=== PATIENT | female | born 1985 | race Caucasian/White ===

== ENCOUNTER 2017-08-29 11:10 | Emergency (ER) | payer OTHER ==
[2017-08-29] MEDS: NORCO, ANEXSIA 5/325MG TABLET (HYDROcodone/ACETAMINOPHEN) PO (12:04)
[2017-08-29] MEDS: AMOXICILLIN 500 MG CAP PO (12:05)
== END 2017-08-29 12:17 | disposition home or self-care (01) ==
LOC: M ED 11:10
DX: K04.7 Periapical abscess without sinus (principal); K02.9 Dental caries, unspecified; F17.210 Nicotine dependence, cigarettes, uncomplicated
CPT/HCPCS: 99283

== ENCOUNTER → 2018-10-26 | Outpatient (REF) | payer OTHER ==
[~2018-10-26] MED LIST: AMOX500C PO; IBUP-1022 PO; IBUP600T26 PO; VICODIN 5/325 PO
[2018-10-29 15:52] LABS: HPV HYBRID CAPTURE II Negative (Negative)
== END ==
LOC: M LAB REF 10:04
PROVIDERS: ATTEND Advanced Practice Midwife
DX: Z12.4 Encounter for screening for malignant neoplasm of cervix (principal)

== ENCOUNTER → 2018-10-28 | Outpatient (CLI) | payer OTHER | LOC: M LAB 12:19 | PROVIDERS: ATTEND Advanced Practice Midwife | DX: Z13.79 Encounter for other screening for genetic and chromosomal anomalies (principal) ==

== ENCOUNTER → 2019-02-08 | Outpatient (CLI) | payer OTHER ==
[2019-02-08 10:32] LABS: HCG, SERUM QUALITATIVE NEGATIVE (NEGATIVE)
[2019-02-08 10:36] LABS: FREE T4 1.16 NG/DL (0.76-1.46)
--- NOTE | 2019-02-08 13:29 | REP ---
Clinical: Lower abdominal/pelvic pain . Technique: Transabdominal pelvic ultrasound followed by transvaginal examination for better evaluation of the endometrium and adnexa with color Doppler evaluation of the ovaries. Findings: Bladder is collapsed. Heterogeneous anteverted uterus measures at 8.1 x 4.5 x 4.4 cm and demonstrates parenchymal calcifications and changes related to prior section. The endometrial complex measures 8.2 mm thickness. Multiple Nabothian cysts are identified measuring up to 14 x 8 x 10 mm. Right ovary is normal in appearance without torsion and measures 2.2 x 1.4 x 1.8 cm. Left ovary not visualized likely due to position and surrounding bowel gas. No pelvic free fluid or obvious adnexal mass lesion. Impression: 1. Heterogeneous anteverted uterus with multiple Nabothian cysts measuring up to 14 mm and evidence for prior section. 2. Normal right ovary without torsion. Left ovary not visualized. Electronically Signed by Ilan Bingham MD 02/08/2019 01:19 P
== END ==
LOC: M RAD 09:30
PROVIDERS: ATTEND Advanced Practice Midwife
DX: N88.8 Other specified noninflammatory disorders of cervix uteri (principal); Z86.32 Personal history of gestational diabetes

== ENCOUNTER → 2019-05-14 | Outpatient (REF) | payer OTHER | LOC: M SFHCPLAZ 15:08 | DX: Z13.1 Encounter for screening for diabetes mellitus (principal); Z13.220 Encounter for screening for lipoid disorders; Z11.59 Encounter for screening for other viral diseases; F17.200 Nicotine dependence, unspecified, uncomplicated; Z53.9 Procedure and treatment not carried out, unspecified reason ==

== ENCOUNTER 2020-05-01 17:16 | Emergency (ER) | payer OTHER ==
[~2020-05-01] VITALS: Ht 165.1 cm; Wt 103.0 kg
[2020-05-01] MEDS ORDERED: ONDANSETRON 4MG/2ML VIAL IV ONE (17:30)
[2020-05-01] MEDS ORDERED: NS 1,000 ML IV ONE (17:30)
[2020-05-01 18:10] LABS: BASO # 0.1 10^3/uL (0.0-0.2); BASO % 0.3 % (0.0-1.0); EOS % 0.2 % (0.0-3.0); HEMATOCRIT 42.6 % (36.0-47.0); HEMOGLOBIN 14.1 g/dl (12.0-15.5); LYMPH # 1.8 10^3/uL (1.5-5.0); LYMPH % 9.9 % (24.0-44.0); MEAN CORPUSCULAR HEMOGLOBIN 29.1 pg (27.0-33.0); MEAN CORPUSCULAR HGB CONC 33.1 g/dl (32.0-36.5); MEAN CORPUSCULAR VOLUME 87.8 fl (80.0-96.0); MONO % 5.4 % (0.0-5.0); NEUTROPHILS % 83.6 % (36.0-66.0); PLATELET COUNT, AUTOMATED 261 10^3/uL (150-450); RED BLOOD COUNT 4.85 10^6/uL (4.00-5.40); WHITE BLOOD COUNT 17.9 10^3/uL (4.0-10.0)
[2020-05-01 18:45] LABS: ACETAMINOPHEN LEVEL < 2.0 UG/ML (10.0-30.0); ALT/SGPT 44 U/L (12-78); BILIRUBIN,DIRECT 0.1 MG/DL (0.0-0.2); BILIRUBIN,TOTAL 0.3 MG/DL (0.2-1.0); BLOOD UREA NITROGEN 10 MG/DL (7-18); CALCIUM LEVEL 9.4 MG/DL (8.5-10.1); CARBON DIOXIDE LEVEL 30 MEQ/L (21-32); CHLORIDE LEVEL 104 MEQ/L (98-107); CPK CREATINE PHOSPHOKINASE 87 U/L (26-192); CREATININE FOR GFR 0.73 MG/DL (0.55-1.30); ETHYL ALCOHOL (ETHANOL) < 0.003 % (0.000-0.010); GLOMERULAR FILTRATION RATE > 60.0 (>60); GLUCOSE, FASTING 110 MG/DL (70-100); POTASSIUM SERUM 3.7 MEQ/L (3.5-5.1); SALICYLATE LEVEL 2.9 MG/DL (5.0-30.0); SODIUM LEVEL 140 MEQ/L (136-145); TOTAL PROTEIN 7.5 GM/DL (6.4-8.2)
[2020-05-01 20:30] VITALS: BP 157/83
== END 2020-05-01 20:53 | disposition home or self-care (01) ==
LOC: M ED 17:16 → EDBD 17:16 → M ED 20:53
DX: F11.129 Opioid abuse with intoxication, unspecified (principal); Y92.89 Other specified places as the place of occurrence of the external cause; F32.9 Major depressive disorder, single episode, unspecified; F41.9 Anxiety disorder, unspecified; F17.200 Nicotine dependence, unspecified, uncomplicated
CPT/HCPCS: 36415; 80048; 80076; 82550; 84443; 85025; 96361; 96374; 99284; G0480; J2405

== ENCOUNTER 2020-10-09 12:58 | Emergency (ER) | payer OTHER ==
[~2020-10-09] VITALS: Ht 170.2 cm; Wt 86.4 kg
--- OUTSIDE RECORDS SUMMARY | 2020-10-09 13:16 | CCD ---
Author Author [facility] Organization [facility] Address Unknown Phone Unavailable Care Team Providers Care Lapel Padder Blindstitch Name Role Phone PETROFF, LARRY PA Unavailable Unavailable PETROFF, LARRY PA Unavailable Unavailable PETROFF, LARRY PA Unavailable Unavailable PETROFF, LARRY PA Unavailable Unavailable PETROFF, LARRY PA Unavailable Unavailable PETROFF, LARRY PA Unavailable Unavailable PETROFF, LARRY PA Unavailable Unavailable PETROFF, LARRY PA Unavailable Unavailable SYMENOW, G CHRISTOPHER PA Unavailable Unavailable SYMENOW, G CHRISTOPHER PA Unavailable Unavailable SYMENOW, G CHRISTOPHER PA Unavailable Unavailable SYMENOW, G CHRISTOPHER PA Unavailable Unavailable SYMENOW, G CHRISTOPHER PA Unavailable Unavailable SYMENOW, G CHRISTOPHER PA Unavailable Unavailable SYMENOW, G CHRISTOPHER PA Unavailable Unavailable SYMENOW, G CHRISTOPHER PA Unavailable Unavailable SYMENOW, G CHRISTOPHER PA Unavailable Unavailable SYMENOW, G CHRISTOPHER PA Unavailable Unavailable SYMENOW, G CHRISTOPHER PA Unavailable Unavailable SYMENOW, G CHRISTOPHER PA Unavailable Unavailable SYMENOW, G CHRISTOPHER PA Unavailable Unavailable SYMENOW, G CHRISTOPHER PA Unavailable Unavailable SYMENOW, G CHRISTOPHER PA Unavailable Unavailable SYMENOW, G CHRISTOPHER PA Unavailable Unavailable SYMENOW, G CHRISTOPHER PA Unavailable Unavailable PONCHO, L AYLEEN PA Unavailable Unavailable PONCHO, L AYLEEN PA Unavailable Unavailable PONCHO, L AYLEEN PA Unavailable Unavailable PONCHO, L AYLEEN PA Unavailable Unavailable PONCHO, L AYLEEN PA Unavailable Unavailable PONCHO, L AYLEEN PA Unavailable Unavailable PONCHO, L AYLEEN PA Unavailable Unavailable PONCHO, L AYLEEN PA Unavailable Unavailable PONCHO, L AYLEEN PA Unavailable Unavailable PONCHO, L AYLEEN PA Unavailable Unavailable PONCHO, L AYLEEN PA Unavailable Unavailable PONCHO, L AYLEEN PA Unavailable Unavailable PONCHO, L AYLEEN PA Unavailable Unavailable PONCHO, L AYLEEN PA Unavailable Unavailable PONCHO, L AYLEEN PA Unavailable Unavailable PONCHO, L AYLEEN PA Unavailable Unavailable PONCHO, L AYLEEN PA Unavailable Unavailable PONCHO, L AYLEEN PA Unavailable Unavailable PONCHO, L AYLEEN PA Unavailable Unavailable Morris, W Tessa RPA-C Unavailable Unavailable Morris, W Tessa RPA-C Unavailable Unavailable Morris, W Tessa RPA-C Unavailable Unavailable Morris, W Tessa RPA-C Unavailable Unavailable Morris, W Tessa RPA-C Unavailable Unavailable Morris, W Tessa RPA-C Unavailable Unavailable Morris, W Tessa RPA-C Unavailable Unavailable Morris, W Tessa RPA-C Unavailable Unavailable Morris, W Tessa RPA-C Unavailable Unavailable Morris, W Tessa RPA-C Unavailable Unavailable Morris, W Tessa RPA-C Unavailable Unavailable Morris, W Tessa RPA-C Unavailable Unavailable Morris, W Tessa RPA-C Unavailable Unavailable Morris, W Tessa RPA-C Unavailable Unavailable Morris, W Tessa RPA-C Unavailable Unavailable Morris, W Tessa RPA-C Unavailable Unavailable Herb GEORGE MD Unavailable Unavailable Herb GEORGE MD Unavailable Unavailable Herb GEORGE MD Unavailable Unavailable Herb GEORGE MD Unavailable Unavailable Herb GEORGE MD Unavailable Unavailable Herb GEORGE MD Unavailable Unavailable Herb GEORGE MD Unavailable Unavailable Herb GEORGE MD Unavailable Unavailable Herb GEORGE MD Unavailable Unavailable Herb GEORGE MD Unavailable Unavailable Herb GEORGE MD Unavailable Unavailable DORISHerb Rudolph MD Unavailable Unavailable DORIS, F DORA MD Unavailable Unavailable DORIS, F DORA MD Unavailable Unavailable DORIS, F DORA MD Unavailable Unavailable DORIS, F DORA MD Unavailable Unavailable DORIS, F DORA MD Unavailable Unavailable DORIS, F DORA MD Unavailable Unavailable DORIS, F DORA MD Unavailable Unavailable DORIS, F DORA MD Unavailable Unavailable DORIS, F DORA MD Unavailable Unavailable DORIS, F DORA MD Unavailable Unavailable DORIS, F DORA MD Unavailable Unavailable DORIS, F DORA MD Unavailable Unavailable DORIS, F DORA MD Unavailable Unavailable DORIS, F DORA MD Unavailable Unavailable DORIS, F DORA MD Unavailable Unavailable DORIS, F DORA MD Unavailable Unavailable LO, MELLISA NASREEN RPA-C Unavailable Unavailable LO, MELLISA NASREEN RPA-C Unavailable Unavailable LO, MELLISA NASREEN RPA-C Unavailable Unavailable LO, MELLISA NASREEN RPA-C Unavailable Unavailable LO, MELLISA NASREEN RPA-C Unavailable Unavailable LO, MELLISA NASREEN RPA-C Unavailable Unavailable LO, MELLISA NASREEN RPA-C Unavailable Unavailable LO, MELLISA NASREEN RPA-C Unavailable Unavailable LO, MELLISA NASREEN RPA-C Unavailable Unavailable LO, MELLISA NASREEN RPA-C Unavailable Unavailable LO, MELLISA NASREEN RPA-C Unavailable Unavailable LO, MELLISA NASREEN RPA-C Unavailable Unavailable LO, MELLISA NASREEN RPA-C Unavailable Unavailable LO, MELLISA NASREEN RPA-C Unavailable Unavailable LO, MELLISA NASREEN RPA-C Unavailable Unavailable LO, MELLISA NASREEN RPA-C Unavailable Unavailable LO, MELLISA NASREEN RPA-C Unavailable Unavailable LO, MELLISA NASREEN RPA-C Unavailable Unavailable LO, MELLISA NASREEN RPA-C Unavailable Unavailable LO, MELLISA NASREEN RPA-C Unavailable Unavailable LO, MELLISA NASREEN RPA-C Unavailable Unavailable LO, MELLISA NASREEN RPA-C Unavailable Unavailable LO, MELLISA NASREEN RPA-C Unavailable Unavailable LO, MELLISA NASREEN RPA-C Unavailable Unavailable LO, MELLISA NASREEN RPA-C Unavailable Unavailable LO, MELLISA NASREEN RPA-C Unavailable Unavailable LO, MELLISA NASREEN RPA-C Unavailable Unavailable LO, MELLISA NASREEN RPA-C Unavailable Unavailable LO, MELLISA NASREEN RPA-C Unavailable Unavailable LO, MELLISA NASREEN RPA-C Unavailable Unavailable LO, MELLISA NASREEN RPA-C Unavailable Unavailable LO, MELLISA NASREEN RPA-C Unavailable Unavailable LO, MELLISA NASREEN RPA-C Unavailable Unavailable LO, MELLISA NASREEN RPA-C Unavailable Unavailable LO, MELLISA NASREEN RPA-C Unavailable Unavailable LO, MELLISA NASREEN RPA-C Unavailable Unavailable LO, MELLISA NASREEN RPA-C Unavailable Unavailable LO, MELLISA NASREEN RPA-C Unavailable Unavailable LO, MELLISA NASREEN RPA-C Unavailable Unavailable Dille, E Jessica DDS Unavailable Unavailable Dille, E Jessica DDS Unavailable Unavailable Dille, E Jessica DDS Unavailable Unavailable Dille, E Jessica DDS Unavailable Unavailable WERBLIN, Landon ZARATE Unavailable [phone] WERBLIN, Landon ZARATE Unavailable [phone] WERALLISONINLandon Unavailable [phone] WERBLIN, Landon ZARATE Unavailable [phone] WERBLIN, Landon ZARATE Unavailable [phone] Kunnumpurath, F Monik MD Unavailable Unavailable Kunnumpurath, F Monik MD Unavailable Unavailable Kunnumpurath, F Monik MD Unavailable Unavailable Kunnumpurath, F Monik MD Unavailable Unavailable Kunnumpurath, F Monik MD Unavailable Unavailable Kunnumpurath, F Monik MD Unavailable Unavailable Kunnumpurath, F Monik MD Unavailable Unavailable Kunnumpurath, F Monik MD Unavailable Unavailable Kunnumpurath, F Monik MD Unavailable Unavailable Kunnumpurath, F Monik MD Unavailable Unavailable Kunnumpurath, F Monik MD Unavailable Unavailable Kunnumpurath, F Monik MD Unavailable Unavailable Kunnumpurath, F Monik MD Unavailable Unavailable Kunnumpurath, F Monik MD Unavailable Unavailable Kunnumpurath, F Monik MD Unavailable Unavailable Kunnumpurath, F Monik MD Unavailable Unavailable Kunnumpurath, F Monik MD Unavailable Unavailable Kunnumpurath, F Monik MD Unavailable Unavailable Kunnumpurath, F Monik MD Unavailable Unavailable Kunnumpurath, F Monik MD Unavailable Unavailable Kunnumpurath, F Monik MD Unavailable Unavailable Kunnumpurath, F Monik MD Unavailable Unavailable Kunnumpurath, F Monik MD Unavailable Unavailable Kunnumpurath, F Monik MD Unavailable Unavailable Kunnumpurath, F Monik MD Unavailable Unavailable Kunnumpurath, F Monik MD Unavailable Unavailable Kunnumpurath, F Monik MD Unavailable Unavailable Kunnumpurath, F Monik MD Unavailable Unavailable Kunnumpurath, F Monik MD Unavailable Unavailable Kunnumpurath, F Monik MD Unavailable Unavailable Kunnumpurath, F Monik MD Unavailable Unavailable Kunnumpurath, F Monik MD Unavailable Unavailable Kunnumpurath, F Monik MD Unavailable Unavailable Kunnumpurath, F Monik MD Unavailable Unavailable Kunnumpurath, F Monik MD Unavailable Unavailable Kunnumpurath, F Monik MD Unavailable Unavailable Kunnumpurath, F Monik MD Unavailable Unavailable Kunnumpurath, F Monik MD Unavailable Unavailable ROZINA, MATTHEW USMAN PA Unavailable Unavailable ROZINA, MATTHEW USMAN PA Unavailable Unavailable ROZINA, MATTHEW USMAN PA Unavailable Unavailable ROZINA, MATTHEW USMAN PA Unavailable Unavailable ROZINA, MATTHEW USMAN PA Unavailable Unavailable ROZINA, MATTHEW USMAN PA Unavailable Unavailable ROZINA, MATTHEW USMAN PA Unavailable Unavailable ROZINA, MATTHEW USMAN PA Unavailable Unavailable ROZINA, MATTHEW USMAN PA Unavailable Unavailable ROZINA, MATTHEW USMAN PA Unavailable Unavailable ROZINA, MATTHEW USMAN PA Unavailable Unavailable ROZINA, MATTHEW USMAN PA Unavailable Unavailable ROZINA, MATTHEW USMAN PA Unavailable Unavailable ROZINA, MATTHEW USMAN PA Unavailable Unavailable ROZINA, MATTHEW USMAN PA Unavailable Unavailable ROZINA, MATTHEW USMAN PA Unavailable Unavailable ROZINA, MATTHEW USMAN PA Unavailable Unavailable ROZINA, MATTHEW USMAN PA Unavailable Unavailable ROZINA, MATTHEW USMAN PA Unavailable Unavailable ROZINA, MATTHEW USMAN PA Unavailable Unavailable ROZINA, MATTHEW USMAN PA Unavailable Unavailable Kunnumpurath, F Monik MD Unavailable Unavailable Kunnumpurath, F Monik MD Unavailable Unavailable Kunnumpurath, F Monik MD Unavailable Unavailable Kunnumpurath, F Monik MD Unavailable Unavailable Kunnumpurath, F Monik MD Unavailable Unavailable Kunnumpurath, F Monik MD Unavailable Unavailable Kunnumpurath, F Monik MD Unavailable Unavailable Kunnumpurath, F Monik MD Unavailable Unavailable Kunnumpurath, F Monik MD Unavailable Unavailable Kunn[place]urath, F Monik MD Unavailable Unavailable Kunn[place]urath, F Monik MD Unavailable Unavailable Kunnumpurath, F Omnik MD Unavailable Unavailable Kunnumpurath, F Monik MD Unavailable Unavailable Kunnumpurath, F Monik MD Unavailable Unavailable Kunnumpurath, F Monik MD Unavailable Unavailable Kunnumpurath, F Monik MD Unavailable Unavailable Kunnumpurath, F Monik MD Unavailable Unavailable Kunnumpurath, F Monik MD Unavailable Unavailable Kunnumpurath, F Monik MD Unavailable Unavailable Kunn[place]urath, F Monik MD Unavailable Unavailable Kunnumpurath, F Monik MD Unavailable Unavailable Kunnumpurath, F Monik MD Unavailable Unavailable Kunnumpurath, F Monik MD Unavailable Unavailable Kunn[place]urath, F Monik MD Unavailable Unavailable Kunnumpurath, F Monik MD Unavailable Unavailable Kunn[place]urath, F Monik MD Unavailable Unavailable Kunnumpurath, F Monik MD Unavailable Unavailable Kunnumpurath, F Monik MD Unavailable Unavailable Kunnumpurath, F Monik MD Unavailable Unavailable Kunnumpurath, F Monik MD Unavailable Unavailable Kunnumpurath, F Monik MD Unavailable Unavailable Kunn[place]urath, F Monik MD Unavailable Unavailable Kunn[place]urath, F Monik MD Unavailable Unavailable Kunnumpurath, F Monik MD Unavailable Unavailable Kunnumpurath, F Monik MD Unavailable Unavailable Kunnumpurath, F Monik MD Unavailable Unavailable Kunnumpurath, F Monik MD Unavailable Unavailable Kunnumpurath, F Monik MD Unavailable Unavailable NO, PCP Unavailable Unavailable Re-disclosure Warning The records that you are about to access may contain information from federally-assisted alcohol or drug abuse programs. If such information is present, then the following federally mandated warning applies: This information has been disclosed to you from records protected by federal confidentiality rules (42 CFR part 2). The federal rules prohibit you from making any further disclosure of this information unless further disclosure is expressly permitted by the written consent of the person to whom it pertains or as otherwise permitted by 42 CFR part 2. A general authorization for the release of medical or other information is NOT sufficient for this purpose. The Federal rules restrict any use of the information to criminally investigate or prosecute any alcohol or drug abuse patient.The records that you are about to access may contain highly sensitive health information, the redisclosure of which is protected by Article 27-F of the [facility] Public Health law. If you continue you may have access to information: Regarding HIV / AIDS; Provided by facilities licensed or operated by the [facility] Office of Mental Health; or Provided by the [facility] Office for People With Developmental Disabilities. If such information is present, then the following [facility] mandated warning applies: This information has been disclosed to you from confidential records which are protected by state law. State law prohibits you from making any further disclosure of this information without the specific written consent of the person to whom it pertains, or as otherwise permitted by law. Any unauthorized further disclosure in violation of state law may result in a fine or intermediate sentence or both. A general authorization for the release of medical or other information is NOT sufficient authorization for further disc losure. Allergies and Adverse Reactions Type Description Substance Reaction Status Data Source(s ) No Known Drug Allergies No Known Drug Allergies [facility] No Known Environmental Allergies No Known Environmental Al lergies [facility] No Known Food Allergies No Known Food Allergies [facility] Family History Family Member Name Family Member Gender Family Member Status Date o f Status Description Data Source(s) Unknown Unknown Problem [facility] ([facility], ) Unknown Male Problem MED[facility] ([facility]) Encounters Encounter Providers Location Date Indications Data Source(s ) Unknown [id number] [facility] [place] [address] 05/25/2020 12:00:00 AM EDT eCW1 ([facility]) Emergency Attender: Tessa Morris RPA-C 08:44:00 AM EDT - 01/01/2020 08:58:00 AM EDT [facility] Patient discharged. Outpatient Attender: Monik King MDConsultant: PCP NO 10/28/2019 10:03:00 AM EDT - 10/28/2019 10:03:00 AM EDT [facility] Outpatient Attender: Monik King MD Family Practice 0 10/28/2019 10:00:00 AM EDT [facility] ([facility]) Outpatient Attender: DORA GEORGE MDConsultant: PCP NO 10/28/2019 08:35:00 AM EDT - 10/28/2019 09:35:00 AM EDT [facility] ital [address] [address] 09/15/2019 12:00:00 AM EST eCW1 ([facility]) Emergency Attender: USMAN HAYSeferrer: NASREEN WHALEN RPA-C 09/13/2019 02:41:00 PM EST - 09/13/2019 02:56:00 PM EST [facility] Patient discharged. Outpatient Attender: DORA GEORGE MD 08/19 09:46:00 AM EST - 09/08/2019 09:46:00 AM [facility] Outpatient Attender: DORA GEORGE MD Family Practice 08/19 08:45:00 AM EST [facility] ([facility]) Outpatient Attender: Jessica Yu DDS [facility] 09/03/2019 10:24:01 A M [facility] Outpatient Attender: [facility] 09/03/2019 10:23:00 A M [facility] Emergency Attender: AYLEEN GOODWIN 08/2018 10:53:00 AM EDT - 03/18/2019 10:54:00 AM [facility] Patient discharged. Emergency Attender: TESSA WILKINS 017 10:13:00 AM EDT - 06/08/2017 06:20:00 PM [facility] Emergency Attender: SUNDAR GOODWIN 07/09/2016 11:07:00 AM EST - 07/09/2016 12:19:00 PM [facility] Emergency Attender: LARRY GOODWIN EMERGENCY ROOM-ER 04/20 12:57:00 PM EDT - 05/16/2016 04:25:00 PM [facility] Emergency Attender: Tessa Morris RPA-C 02/2015 03:06:00 PM EDT - 05/24/2015 05:15:00 PM EDT [facility] Medications Medication Brand Name Start Date Product Form Dose Route Admi nistrative Instructions Pharmacy Instructions Status Indications Reaction Description Data Source(s) 5-325 mg 01/01/2020 12:00:00 AM EDT tablet 6 TAKE ONE TABLET BY MOUTH THREE TIMES A DAY . MAXIMUM DAILY DOSE = 3 TAKE ONE TABLET BY MOUTH THREE TIMES A D AY . MAXIMUM DAILY DOSE = 3 SOLD: 01/01/2020 [facility] 300 mg 01/01/2020 12:00:00 AM EDT capsule 40 TAKE ONE CAPSULE BY MOUTH FOUR TIMES A DAY TAKE ONE CAPSULE BY MOUTH FOUR TIMES A DAY SOLD: 01/01/2020 [facility] 24 HR metoprolol succinate 25 MG Extended Release Oral Tablet Metoprolol Succinate ER 10/28/2019 12:00:00 AM EDT ORAL active MEDENT ([facility]) 5-325 mg 09/13/2019 12:00:00 AM EST tablet 24 TAKE ONE TABLET BY MOUTH EVERY 4-6 HOURS NEEDED FOR PAIN MAXIMUM DAILY DOSE = 6 TAKE ONE TABLET BY MOUTH EVERY 4-6 HOURS NEEDED FOR PAIN MAXIMUM DAILY DOSE = 6 SOLD: 09/13/2019 [facility] 300 mg 09/13/2019 12:00:00 AM EST capsule 40 TAKE ONE CAPSULE BY MOUTH EVERY 6 HOURS DIRECTED FOR 10 DAYS TAKE ONE CAPSULE BY MOUTH EVERY 6 HOURS DIRECTED FOR 10 DAYS SOLD: 09/13/2019 [facility] 500 mg 09/13/2019 12:00:00 AM EST tablet 20 TAKE ONE TABLET BY MOUTH EVERY 12 HOURS TAKE ONE TABLET BY MOUTH EVERY 12 HOURS SOLD: 09/13/2019 [facility] No Active Medications 07/14/2019 12:00:00 AM EST completed MEDENT ([facility]) Insurance Providers Payer name Policy type / Coverage type Policy ID Covered constitution party ID Covered constitution party's relationship to sampson Policy Sampson Plan Information [employer] MCDO [id number] SP [id number] [employer] MEDICAID [id number] S [id number] [employer] MEDICAID [id number] S [id number] [employer] MEDICAID [id number] S [id number] [employer] MEDICAID [id number] S [id number] [employer] COMMUNITY PLAN XIX [id number] 18 [id number] [facility] COMMUNTY PLAN [id number] 18 [id number] [employer] MEDICAID [id number] S [id number] MEDICAID [facility] [id number] Sliding Fee Scale P UNAVAILABLE S UNAVAILABLE SELF PAY ONLY [id number] SP [id number] [employer] COMMUNITY PLAN [facility] [id number] SP [id number] [facility](MCAID) O [id number] S [id number] [facility] Health Maintenance Organization (HMO) [id number] Self [id number] [employer] COMMUNITY PLAN [facility] [id number] SP [id number] [facility] Health Maintenance Organization (HMO) [id number] Self [id number] [facility] Health Maintenance Organization (HMO) [id number] Self [id number] ANSI-Medicaid [id number] MEDICAID [id number] S [id number] MEDICAID [id number] S [id number] SELF PAY UNAVAILABLE S UNAVAILA BLE [facility] MEDICAID [id number] S [id number] [facility] Communty Plan Medicaid [id number] Self [id number] SELF PAY SP [id number] S [id number] [facility] [id number] S [id number] D Managed Care [facility] P [id number] S [id number] D Managed Care [facility] P UNAVAILABLE S UNAVAILABLE Medicaid Dental P [id number] S [id number] SELF PAY UNAVAILABLE MO2 UNAVAILA BLE [facility](MCAID) P [id number] S [id number] [employer] [id number] SP [id number] UNITED HEALTHCARE [id number] SP [id number] [facility] S 0000 [facility] [id number] S [id number] [employer] [place] PLAN [id number] SP [id number] MEDICAID [id number] SP [id number] Problems, Conditions, and Diagnoses Code Display Name Description Problem Type Effective Dates Data Source(s) 84305329 Heart murmur Heart murmur Problem 10/28/2019 12:00:00 A M EDT MEDBRIANNA ([facility]) [id number] Obesity Obesity Problem 10/28/2019 12:00:00 AM ED T MEDBRIANNA ([facility]) [id number] Family history of malignant neoplasm of ovary Family history of malignant neoplasm of ovary Problem 10/28/2019 12:00:00 AM EDT MEDEN T ([facility]) [id number] Essential hypertension Essential hypertension Problem 10/28/2019 12:00:00 AM EDT MEDENT ([facility]) Z79.899 Other group home (current) drug therapy [facility] (CURRENT) DRUG THERAPY Diagnosis 01/01/2020 08[facility]44[facility] (current) use of non-steroidal anti-inflammatories (NSAID) GARBAGE PICK UP MAN (CURRENT) USE OF NON-STEROIDAL NON-INFLA Diagnosis 01/01/20 20 08:44:00 AM [facility] F17.210 Nicotine dependence, cigarettes, uncompl icated NICOTINE DEPENDENCE, CIGARETTES, UNCOMPLICATED Diagnosis 01/01/2020 08:44:00 AM [facility] K04.7 Periapical abscess without sinus PERIAPICAL ABSC ESS WITHOUT SINUS Diagnosis 01/01/2020 08:44:00 AM [facility] K08.89 OTHER SPECIFIED DISORDERS OF TEETH AND S UPPORTING STRUCTURES OTHER SPECIFIED DISORDERS OF TEETH AND SUPPORTING STRUCTURES Diagnosis 01/01/2020 08:44:00 AM [facility] Z0000 Encounter for general adult medical exam ination without abnormal findings Encounter for general adult medical examination without abnormal findings Diagnosis 10/28/2019 10:03:[address] [facility] Z8041 Family history of malignant neoplasm of ovary Family history of malignant neoplasm of ovary Diagnosis 10/28/2019 10:03:[address] [facility] Z1389 Encounter for screening for other disord er Encounter for screening for other disorder Diagnosis 10/28/2019 10:03:[address] [facility] Z6839 Body mass index (BMI) 39.0-39.9, adult B mirza mass index (BMI) 39.0-39.9, adult Diagnosis 10/28/2019 10:03:[address] [facility] E669 Obesity, unspecified Obesity, unspecified Diagnosis 10/28/2019 10:03:[address] [facility] R011 Cardiac murmur, unspecified Cardiac murmur, unspecifie d Diagnosis 10/28/2019 10:03:[address] [facility] I10 Essential (primary) hypertension Essential (primary) h ypertension Diagnosis 10/28/2019 10:03:00 AM EDT [facility] [id number] Encounter for other preprocedural examin ation Encounter for other preprocedural examination Diagnosis 10/28/2019 08:35:00 AM EDT [facility] N912 Amenorrhea, unspecified Amenorrhea, unspecified Diagno sis 10/28/2019 08:35:00 AM EDT [facility] K02.9 Dental caries, unspecified DENTAL CARIES, UNSPECIFIED Diagnosis 09/13/2019 02:41:00 PM [facility] Surgeries/Procedures Procedure Description Date Indications Data Source(s) Admin Patient Focused Health Risk Assessment Instrument 10/28/2019 12:00:00 AM EDT [facility] ([facility]) Results ID Date Data Source [id number] 09/04/2020 12:00:00 AM EST [facility] Name Value Range Interpretation Code Description Data Chata rce(s) Supporting Document(s) SARS coronavirus 2 RNA [Presence] in Res piratory specimen by IMELDA with probe detection NEGATIVE [facility] This lab was ordered by Forrest Rose and reported by [facility]. ID Date Data Source [id number] 01/04/2020 11:11:00 PM EDT [facility] Patient: BOSSMAN JACKSON Observatio n Report - Physicians/[facility].VisitID: [id number] [place] [address] [phone], FRegistration Date/Time: 01/01/2020 08:31 Weight:104.3 kg (S). Height/Length:65 inches (S). BMI:38.3 FAMILY HISTORYNo significant family medical history. (Electronically signed by Tessa Morris PA 01/01/2020 08:57) Name Value Range Interpretation Code Description Data Chata rce(s) Supporting Document(s) ID Date Data Source [id number] 10/28/2019 11:04:00 AM EDT [facility]ENT ([facility]) Name Value Range Interpretation Code Description Data Chata rce(s) Supporting Document(s) Hemoglobin A1c/Hemoglobin.total in Blood <pending> [facility] ([facility]) ID Date Data Source [id number] 10/28/2019 01:32:00 PM EDT [facility] Name Value Range Interpretation Code Description Data Chata rce(s) Supporting Document(s) COMPREHENSIVE METABOLIC PANEL [facility] COMPREHENSIVE METABOLIC PANEL Sodium [Moles/volume] in Serum or Plasma 141 mEq/L 134 - 153 [facility] Potassium [Moles/volume] in Serum or Plasma 4.2 mEq/L 3.6 - 5.0 [facility] Chloride [Moles/volume] in Serum or Plasma 101 mEq/L 98 - 107 [facility] Carbon dioxide, total [Moles/volume] in Serum or Plasma 31 MEQ/L 22 - 30 H [facility] Glucose [Mass/volume] in Serum or Plasma 130 MG/DL 65 - 110 H [facility] BUN 8 MG/DL 7 - 21 [facility] al Creatinine [Mass/volume] in Serum or Plasma 0.5 MG/DL 0.7 - 1.5 L [facility] BUN/CREAT 16 8 - 27 [facility] al Protein [Mass/volume] in Serum or Plasma 7.3 G/DL 6.3 - 8.2 [facility] Albumin [Mass/volume] in Serum or Plasma 4.4 G/DL 3.9 - 5.0 [facility] Globulin [Mass/volume] in Serum by calculation 2.9 GM/DL 2.4 - 3.2 [facility] A/G RATIO 1.5 0.8 - 2.0 [facility] Calcium [Mass/volume] in Serum or Plasma 9.4 MG/DL 8.4 - 10.2 [facility] Bilirubin.total [Mass/volume] in Serum or Plasma <0.7 MG/DL 0.2 - 1.3 [facility] Alkaline phosphatase [Enzymatic activity/volume] in Serum or Plasma 113 U/L 38 - 126 [facility] Aspartate aminotransferase [Enzymatic activity/volume] in Serum or Plasma 31 U/L 5 - 40 [facility] Alanine aminotransferase [Enzymatic activity/volume] in Seru m or Plasma 46 U/L 7 - 56 [facility] Anion gap 3 in Serum or Plasma 9.0 mmol/L 8.0 - 16.0 [facility] AGE 34 yrs [facility] al NON-AA GFR >60 mL/min [facility] Hosp ital AFR AMER GFR >60 mL/min [facility] Ho spital Male GFR In terprentation 20-49 yrs >60 mL/min Normal 50-59 yrs >56 mL/min Normal 60-69 yrs >49 mL/min Normal 70-79yrs >42 mL/min Normal 80 and above >35 mL/min Normal Female GFR Interpretation 20-39 yrs >60 mL/min Normal 40-49 yrs >58 mL/min Normal 50-59 yrs >51 mL/min Normal 60-69 yrs >45 mL/min Normal 70-79 yrs >39 mL/min Normal 80 and above >32 mL/min Normal ID Date Data Source [id number] 10/28/2019 01:31:00 PM EDT [facility] Name Value Range Interpretation Code Description Data Chata rce(s) Supporting Document(s) Hemoglobin A1c/Hemoglobin.total in Blood 5.8 % 4.4 - 6.1 [facility] {A1]{HB] ID Date Data Source [id number] 10/28/2019 09:24:00 AM EDT [facility] ([facility]) Name Value Range Interpretation Code Description Data Chata rce(s) Supporting Document(s) RBC 4.58 10^6/uL 4.20-5.40 [facility] ([facility]) CBC No Diff (SEE NOTE) [facility] ([facility]) COMPLETE BLOOD COUNT WBC 9.2 10^3/uL 4.2-11.0 [facility] ([facility]) Hemoglobin 13.3 g/dL 12.0-16.0 [facility] ([facility]) Hematocrit 40.8 % 37.0-47.0 [facility] ([facility]) MCV 89.1 fL 81.0-101 [facility] ([facility]) MCHC 32.6 g/dL 31.0-36.0 [facility] ([facility]) RDW 12.3 % 11.5-14.5 [facility] ([facility]) MCH 29.0 pg 27.0-34.0 [facility] ([facility]) MPV 9.6 fL 7.4-10.4 [facility] ([facility]) Platelets 260 10^3/uL 150-450 [facility] ([facility]) ID Date Data Source [id number] 10/28/2019 11:01:00 AM EDT [facility] Name Value Range Interpretation Code Description Data Chata rce(s) Supporting Document(s) [facility] COL[facility] yellow NORMAL: Yellow [facility]ital CLARITY hazy NORMAL: Clear [facility] spital Specific gravity of Urine by Test strip 1.015 1.001 - 1.030 [facility] pH 7 5 - 9 [facility] Glucose [Mass/volume] in Urine by Test strip NORM NORMAL: Negat [facility] Bilirubin.total [Presence] in Urine by Test strip NEG NORMAL: Negative [facility] Ketones [Presence] in Urine by Test strip NEG NORMAL: Negative [facility] Protein [Mass/volume] in Urine by Test strip NEG NORMAL: Negat [facility] Nitrite [Presence] in Urine by Test strip NEG NORMAL: Negative [facility] BLOOD NEG NORMAL: Negative [facility] Leukocyte esterase [Presence] in Urine by Test strip NEG REENA L: Negative [facility] Urobilinogen [Mass/volume] in Urine by Test strip 1 less josy n 1.0 mg/dL [facility] MICROSCOPIC Not Indicate [facility]ital ID Date Data Source [id number] 10/28/2019 10:44:00 AM EDT [facility] Name Value Range Interpretation Code Description Data Chata rce(s) Supporting Document(s) HCG SERUM QUAL NEGATIVE NORMAL: NEGATIVE [facility] HCG SERUM QL REENTER NEGATIVE NORMAL: NEGATIVE [facility] { KIT LOT # [id number] ){ KIT EXP DATE 02.04.21 ){ PROCEDURAL CONTROL VALID ) ID Date Data Source [id number] 10/28/2019 09:35:00 AM EDT [facility] Name Value Range Interpretation Code Description Data Chata rce(s) Supporting Document(s) CBC NO DIFF [facility] Hosp ital COMPLETE BLOOD COUNT Leukocytes [#/volume] in Blood by Automated count 9.2 10^3/uL 4.2 - 1 1.0 [facility] Erythrocytes [#/volume] in Blood by Automated count 4.58 10^6/uL 4. 20 - 5.40 [facility] Hemoglobin [Mass/volume] in Blood 13.3 g/dL 12.0 - 16.0 [facility] Hematocrit [Volume Fraction] of Blood by Automated count 40.8 % 3 7.0 - 47.0 [facility] Erythrocyte mean corpuscular volume [Entitic volume] by Auto mated count 89.1 fL 81.0 - 101 [facility] Erythrocyte mean corpuscular hemoglobin [Entitic mass] by Automated count 29.0 pg 27.0 - 34.0 [facility] Erythrocyte mean corpuscular hemoglobin concentration [Mass/volume] by Automated count 32.6 g/dL 31.0 - 36.0 [facility] Erythrocyte distribution width [Ratio] by Automated count 12.3 % 11.5 - 14.5 [facility] Platelets [#/volume] in Blood by Automated count 260 10^3/uL 150 - 45 0 [facility] Platelet mean volume [Entitic volume] in Blood by Automated count 9.6 fL 7.4 - 10.4 [facility] ID Date Data Source [id number] 09/13/2019 04:11:00 PM EST [facility] Patient: BOSSMAN JACKSON Observatio n Report - Physicians/[facility].VisitID: [id number] [place] [address] [phone], FRegistration Date/Time: 09/13/2019 14:16 Weight:102.5 kg (S). Height/Length:65 inches (S). BMI:37.6 PAST HISTORYProblems:Back Pain [Chronic].Carpal Tunnel Syndrome [Chronic].Tension-Type Headache.Abscess.Back Pain.Chest Injury.Pre-cancerous cells (cervix).Gastroesophageal Reflux Disease.Dental Caries.Dental Pain.Dental Abscess.Dental Caries [Resolved].Dental Abscess [Resolved].Dental Pain [Resolved].Contusion [Resolved].Bronchitis [Resolved].Colitis [Resolved].Cholecystitis [Resolved].Fall [Resolved].Sprain [Resolved].Sprain [Resolved].Abdominal Pain [Resolved].Tendonitis [Resolved].Gastroenteritis [Resolved].Gallbladder Disease [Resolved].Diarrhea [Resolved].Strep Throat [Resolved].Acute Pain [Resolved]. Additional Surgeries:Adenoidectomy.Bilateral Tubal Ligation.Cholecystectomy.C- Section.Previous Abdominal Surgery.Tonsillectomy. Medications:None. Allergies:No Known Drug Allergy. FAMILY HISTORYNo significant family medical history. INSTRUCTIONSYour Current Medications: .No home medication. (Electronically signed by Usman Gudino P.A. 09/13/2019 15:44) Name Value Range Interpretation Code Description Data Chata rce(s) Supporting Document(s) Procedure Vital Signs ID Date Data Source UNK Name Value Range Interpretation Code Description Data Source(s) Body surface area Derived from formula 2.14 m2 2.14 m2 [facility] ([facility]) Body mass index (BMI) [Ratio] 39.9 kg/m2 39.9 k g/m2 [facility] ([facility]) Body height 65 [in_i] 65 [in_i] [facility] ([facility]) 5'5" Body weight 108.864 kg 108.864 kg [facility] ([facility]) Body weight 240.00 [lb_av] 240.00 [lb_av] [facility] T ([facility]) Oxygen saturation in Arterial blood by Pulse oximetry 97 % 97 % [facility] ([facility]) Respiratory rate 16 /min 16 /min [facility] ( [facility]) Body temperature 96.6 [degF] 96.6 [degF] [facility] ([facility]) Heart rate 91 /min 91 /min [facility] ([facility]) Diastolic blood pressure 110 mm[Hg] 110 mm[Hg] [facility] ([facility]) Systolic blood pressure 142 mm[Hg] 142 mm[Hg] [facility] Body surface area 2.14 m2 2.14 m2 [facility] ([facility]) Body surface area Derived from formula 2.10 m2 2.10 m2 [facility] ([facility]) Body mass index (BMI) [Ratio] 38.1 kg/m2 38.1 k g/m2 [facility] ([facility]) Body height 65 [in_i] 65 [in_i] [facility] ([facility]) 5'5" Body weight 103.874 kg 103.874 kg [facility] ([facility]) Body weight 229.00 [lb_av] 229.00 [lb_av] [facility] T ([facility]) Heart rate 83 /min 83 /min [facility] ([facility]) Diastolic blood pressure 82 mm[Hg] 82 mm[Hg] [facility] ([facility]) Systolic blood pressure 135 mm[Hg] 135 mm[facility]Hg] [facility] Body surface area 2.10 m2 2.10 m2 [facility] ([facility])
[2020-10-09] MEDS ORDERED: LORazepam 2 MG/ML VIAL IV STA (13:37)
[2020-10-09] MEDS ORDERED: ONDANSETRON 4MG/2ML VIAL IV ONE (13:45)
--- OUTSIDE RECORDS SUMMARY | 2020-10-09 14:35 | CCD ---
Author Author [facility] Organization [facility] Address Unknown Phone Unavailable Care Team Providers Care Aligning Inspector Name Role Phone PETROFF, LARRY PA Unavailable Unavailable PETROFF, LARRY PA Unavailable Unavailable PETROFF, LARRY PA Unavailable Unavailable PETROFF, LRARY PA Unavailable Unavailable PETROFF, LARRY PA Unavailable [...] Unavailable Herb GEORGE MD Unavailable Unavailable Herb GEOREG MD Unavailable Unavailable Herb GEORGE MD Unavailable [...] F DORA MD Unavailable Unavailable DORIS, F DROA MD Unavailable Unavailable DORIS, F DORA MD [...] DDS Unavailable Unavailable WERBLIN, Landon ZARATE Unavailable [phone] WERBLIN, Landon ZARATE Unavailable [phone] WERALLISONINLandon Unavailable [phone] WERBLIN, Landon ZARATE Unavailable [phone] WERBLIN, Landon ZARATE Unavailable [phone] Kunnumpurath, F Monik MD Unavailable Unavailable Kunnumpurath, [...] MATTHEW USMAN PA Unavailable Unavailable ROZINA, MATTHEW SUMAN PA Unavailable Unavailable ROZINA, MATTHEW USMAN PA [...] is protected by Article 27-F of the [facility] Public Health law. If you continue you may have access to information: Regarding HIV / AIDS; Provided by facilities licensed or operated by the [facility] Office of Mental Health; or Provided by the [facility] Office for People With Developmental Disabilities. If such information is present, then the following [facility] mandated warning applies: This information has [...] law may result in a fine or skilled nursing sentence or both. A general authorization for the release of medical or other information is NOT sufficient authorization for further disc losure. Allergies and Adverse Reactions Type Description Substance Reaction Status Data Source(s ) No Known Drug Allergies No Known Drug Allergies [facility] No Known Environmental Allergies No Known Environmental Al lergies [facility] No Known Food Allergies No Known Food Allergies [facility] Family History Family Member Name Family Member Gender Family Member Status Date o f Status Description Data Source(s) Unknown Unknown Problem MEDENT ([facility], ) Unknown Male Problem MEDENT ([facility]) Encounters Encounter Providers Location Date Indications Data Source(s ) Unknown [address] [facility] [address] 05/25/2020 12:00:00 AM EDT eCW1 ([facility]) Emergency Attender: Tessa Morris RPA-C 08:44:00 AM EDT - 01/01/2020 08:58:00 AM EDT [facility] Patient discharged. Outpatient Attender: Monik King MDConsultant: PCP NO 10/28/2019 10:03:00 AM EDT - 10/28/2019 10:03:00 AM EDT [facility] Outpatient Attender: Monik King MD Family Practice 0 10/28/2019 10:00:00 AM EDT MEDENT ([facility]) Outpatient Attender: DORA GEORGE MDConsultant: PCP NO 10/28/2019 08:35:00 AM EDT - 10/28/2019 09:35:00 AM EDT [facility] ital [address] [address] 09/15/2019 12:00:00 AM EST eCW1 (Critical [facility] hospital) Emergency Attender: USMAN HAYSeferrer: NASREEN WHALEN RPA-C 09/13/2019 02:41:00 PM EST - 09/13/2019 02:56:00 PM EST [facility] Patient discharged. Outpatient Attender: DORA GEORGE MD 08/19 09:46:00 AM EST - 09/08/2019 09:46:00 AM [facility] Outpatient Attender: DORA GEORGE MD Family Practice 08/19 08:45:00 AM EST MEDENT ([facility]) Outpatient Attender: Jessica Yu DDS [facility] 09/03/2019 10:24:01 A [facility]: [facility]/03/2019 10:23:00 [facility] Emergency Attender: AYLEEN GOODWIN 08/2018 10:53:00 AM EDT - 03/18/2019 10:54:00 AM [facility] Patient discharged. Emergency Attender: TESSA WILKINS 017 10:13:00 AM EDT - 06/08/2017 06:20:00 PM [facility] Emergency Attender: SUNDAR GOODWIN 07/09/2016 11:07:00 AM EST - 07/09/2016 12:19:00 PM [facility] Emergency Attender: LARRY GOODWIN EMERGENCY ROOM-ER 04/20 12:57:00 PM EDT - 05/16/2016 04:25:00 PM [facility] Emergency Attender: Tessa Morris RPA-C 02/2015 03:06:00 PM EDT - 05/24/2015 05:15:00 PM EDT [facility] Medications Medication Brand Name Start Date Product [...] 10/28/2019 12:00:00 AM EDT ORAL active MEDENT ([facility]) 5-325 mg 09/13/2019 12:00:00 AM EST tablet [...] Medications 07/14/2019 12:00:00 AM EST completed MEDENT ([facility]) Insurance Providers Payer name Policy type / Coverage type Policy ID Covered green party ID Covered green party's relationship to sampson Policy Sampson Plan Information [employer] COMMUNITY PLAN MCDO [id number] SP [id number] [employer] MEDICAID [id number] S [id number] [employer] MEDICAID [id number] S [id number] [employer] MEDICAID [id number] S [id number] [employer] MEDICAID [id number] S [id number] [employer]HC COMMUNITY PLAN XIX [id number] 18 [id number] [facility] COMMUNTY PLAN [id number] [employer] MEDICAID [id number] S [id number] [facility]ID [facility] [id number] Sliding Fee Scale P UNAVAILABLE S UNAVAILABLE SELF PAY ONLY [id number] SP [id number] UNHC COMMUNITY PLAN [facility] [id number] SP [id number] [facility](MCAID) O [id number] S [id number] [facility] Health Maintenance Organization (HMO) [id number] Self [id number] [employer] COMMUNITY PLAN [facility] [id number] SP [id number] [facility] Health Maintenance Organization (HMO) [id number] Self [id number] [facility] Health Maintenance Organization (HMO) [id number] Self [id number] ANSI-Medicaid [id number] MEDICAID [id number] S [id number] MEDICAID [id number] S [id number] SELF PAY UNAVAILABLE S UNAVAILA BLE [facility] MEDICAID [id number] S [id number] [facility] Communty Plan Medicaid [id number] Self [id number] SELF PAY SP [id number] S [id number] [facility] [id number] S [id number] D Managed Care [facility] P [id number] S [id number] D Managed Care [facility] P UNAVAILABLE S UNAVAILABLE Medicaid Dental P [id number] S [id number] SELF PAY UNAVAILABLE MO2 UNAVAILA BLE [facility](MCAID) P [id number] S [id number] BLUE CROSS [employer] PLAN [id number] SP [id number] UNITED HEALTHCARE [id number] SP [id number] [facility] MEDICAID [facility] 0000 S 0000 BCBS [facility] [id number] S [id number] [employer] PLAN [id number] SP [id number] MEDICAID [id number] SP [id number] Problems, Conditions, and Diagnoses Code Display Name Description Problem Type Effective Dates Data Source(s) 90957506 Heart murmur Heart murmur Problem 10/28/2019 12:00:00 A M EDT MEDBRIANNA ([facility]) [id number] Obesity Obesity Problem 10/28/2019 12:00:00 AM ED T MEDBRIANNA ([facility]) [id number] Family history of malignant neoplasm of ovary Family history of malignant neoplasm of ovary Problem 10/28/2019 12:00:00 AM EDT MEDEN T ([facility]) [id number] Essential hypertension Essential hypertension Problem 10/28/2019 12:00:00 AM EDT MEDENT ([facility]) Z79.899 Other penitentiary (current) drug therapy O THER [facility] (CURRENT) DRUG THERAPY Diagnosis 01/01/2020 08:44:00 [facility] Z[facility]1 intermediate (current) use of non-steroidal anti-inflammatories (NSAID) HORTICULTURALIST (CURRENT) USE OF NON-STEROIDAL NON-INFLA Diagnosis 01/01/20 20 08:44:00 AM [facility] F17.210 Nicotine dependence, cigarettes, uncompl icated NICOTINE DEPENDENCE, CIGARETTES, UNCOMPLICATED Diagnosis 01/01/2020 08:44:00 AM [facility] K04.7 Periapical abscess without sinus PERIAPICAL ABSC ESS WITHOUT SINUS Diagnosis 01/01/2020 08:44:00 AM [facility] K08.89 OTHER SPECIFIED DISORDERS OF TEETH AND S UPPORTING STRUCTURES OTHER SPECIFIED DISORDERS OF TEETH AND SUPPORTING STRUCTURES Diagnosis 01/01/2020 08:44:00 AM [facility] Z0000 Encounter for general adult medical exam ination without abnormal findings Encounter for general adult medical examination without abnormal findings Diagnosis 10/28/2019 10:03:00 AM [facility] Z8041 Family history of malignant neoplasm of ovary Family history of malignant neoplasm of ovary Diagnosis 10/28/2019 10:03:00 AM [facility] Z1389 Encounter for screening for other disord er Encounter for screening for other disorder Diagnosis 10/28/2019 10:03:00 AM [facility] Z6839 Body mass index (BMI) 39.0-39.9, adult B mirza mass index (BMI) 39.0-39.9, adult Diagnosis 10/28/2019 10:03:00 AM [facility] E669 Obesity, unspecified Obesity, unspecified Diagnosis 10/28/2019 10:03:00 AM [facility] R011 Cardiac murmur, unspecified Cardiac murmur, unspecifie d Diagnosis 10/28/2019 10:03:00 AM [facility] I10 Essential (primary) hypertension Essential (primary) h ypertension Diagnosis 10/28/2019 10:03:00 AM EDT [facility] U28076 Encounter for other preprocedural examin ation Encounter for other preprocedural examination Diagnosis 10/28/2019 08:35:00 AM EDT [facility] N912 Amenorrhea, unspecified Amenorrhea, unspecified Diagno sis 10/28/2019 08:35:00 AM EDT [facility] K02.9 Dental caries, unspecified DENTAL CARIES, UNSPECIFIED Diagnosis 09/13/2019 02:41:00 PM [facility] Surgeries/Procedures Procedure Description Date Indications Data Source(s) Admin Patient Focused Health Risk Assessment Instrument 10/28/2019 12:00:00 AM EDT [facility] ([facility]) Results ID Date Data Source [id number] 09/04/2020 12:00:00 AM EST [facility] Name Value Range Interpretation Code Description Data Chata rce(s) Supporting Document(s) SARS coronavirus 2 RNA [Presence] in Res piratory specimen by IMELDA with probe detection NEGATIVE [facility] This lab was ordered by Forrest Rose and reported by [facility]. ID Date Data Source [id number] 01/04/2020 11:11:00 PM EDT [facility] Patient: BOSSMAN JACKSON Observatio n Report - [facility].VisitID: [id number] [place] [address] [phone], FRegistration Date/Time: 01/01/2020 08:31 Weight:104.3 kg (S). Height/Length:65 inches (S). BMI:38.3 FAMILY HISTORYNo significant family medical history. (Electronically signed by Tessa Morris PA 01/01/2020 08:57) Name Value Range Interpretation Code Description Data Chata rce(s) Supporting Document(s) ID Date Data Source [id number] 10/28/2019 11:04:00 AM EDT MEDENT ([facility]) Name Value Range Interpretation Code Description Data Chata rce(s) Supporting Document(s) Hemoglobin A1c/Hemoglobin.total in Blood <pending> MEDENT ([facility]) ID Date Data Source [id number] 10/28/2019 01:32:00 PM EDT [facility] Name Value Range Interpretation Code Description Data Chata rce(s) Supporting Document(s) COMPREHENSIVE METABOLIC PANEL [facility] COMPREHENSIVE METABOLIC PANEL Sodium [Moles/volume] in Serum or Plasma 141 mEq/L 134 - 153 [facility] Potassium [Moles/volume] in Serum or Plasma 4.2 mEq/L 3.6 - 5.0 [facility] Chloride [Moles/volume] in Serum or Plasma 101 mEq/L 98 - 107 [facility] Carbon dioxide, total [Moles/volume] in Serum or Plasma 31 MEQ/L 22 - 30 H [facility] Glucose [Mass/volume] in Serum or Plasma 130 MG/DL 65 - 110 H [facility] BUN 8 MG/DL 7 - 21 [facility] Creatinine [Mass/volume] in Serum or Plasma 0.5 MG/DL 0.7 - 1.5 L [facility] BUN/CREAT 16 8 - 27 [facility] Protein [Mass/volume] in Serum or Plasma 7.3 G/DL 6.3 - 8.2 [facility] Albumin [Mass/volume] in Serum or Plasma 4.4 G/DL 3.9 - 5.0 [facility] Globulin [Mass/volume] in Serum by calculation 2.9 GM/DL 2.4 - 3.2 [facility] A/G RATIO 1.5 0.8 - 2.0 [facility] Calcium [Mass/volume] in Serum or Plasma 9.4 MG/DL 8.4 - 10.2 [facility] Bilirubin.total [Mass/volume] in Serum or Plasma <0.7 MG/DL 0.2 - 1.3 [facility] Alkaline phosphatase [Enzymatic activity/volume] in Serum or Plasma 113 U/L 38 - 126 [facility] Aspartate aminotransferase [Enzymatic activity/volume] in Serum or Plasma 31 U/L 5 - 40 [facility] Alanine aminotransferase [Enzymatic activity/volume] in Seru m or Plasma 46 U/L 7 - 56 [facility] Anion gap 3 in Serum or Plasma 9.0 mmol/L 8.0 - 16.0 [facility] AGE 34 yrs [facility] NON-AA GFR >60 mL/min [facility] AFR AMER GFR >60 mL/min [facility] Male GFR In terprentation [...] >32 mL/min Normal ID Date Data Source [id number] 10/28/2019 01:31:00 PM EDT [facility] Name Value Range Interpretation Code Description Data Chata rce(s) Supporting Document(s) Hemoglobin A1c/Hemoglobin.total in Blood 5.8 % 4.4 - 6.1 [facility] {A1]{HB] ID Date Data Source [id number] 10/28/2019 09:24:00 AM EDT MEDENT ([facility]) Name Value Range Interpretation Code Description Data Chata rce(s) Supporting Document(s) RBC 4.58 10^6/uL 4.20-5.40 MEDENT ([facility]) CBC No Diff (SEE NOTE) MEDENT ([facility]) COMPLETE BLOOD COUNT WBC 9.2 10^3/uL 4.2-11.0 MEDENT ([facility]) Hemoglobin 13.3 g/dL 12.0-16.0 MEDENT ([facility]) Hematocrit 40.8 % 37.0-47.0 MEDENT ([facility]) MCV 89.1 fL 81.0-101 MEDENT ([facility]) MCHC 32.6 g/dL 31.0-36.0 MEDENT ([facility]) RDW 12.3 % 11.5-14.5 MEDENT ([facility]) MCH 29.0 pg 27.0-34.0 MEDENT ([facility]) MPV 9.6 fL 7.4-10.4 MEDENT ([facility]) Platelets 260 10^3/uL 150-450 MEDENT ([facility]) ID Date Data Source [id number] 10/28/2019 11:01:00 AM EDT [facility] Name Value Range Interpretation Code Description Data Chata rce(s) Supporting Document(s) [facility] SOURCE R [facility] COLOR yellow NORMAL: Yellow [facility]spital CLARITY hazy NORMAL: Clear [facility] spital Specific gravity of Urine by Test strip 1.015 1.001 - 1.030 [facility] pH 7 5 - 9 [facility] Glucose [Mass/volume] in Urine by Test strip NORM NORMAL: Negat [facility] Bilirubin.total [Presence] in Urine by Test strip NEG NORMAL: Negative [facility] Ketones [Presence] in Urine by Test strip NEG NORMAL: Negative [facility] Protein [Mass/volume] in Urine by Test strip NEG NORMAL: Negat [facility] Nitrite [Presence] in Urine by Test strip NEG NORMAL: Negative [facility] BLOOD NEG NORMAL: Negative [facility] Leukocyte esterase [Presence] in Urine by Test strip NEG REENA L: Negative [facility] Urobilinogen [Mass/volume] in Urine by Test strip 1 less josy n 1.0 mg/dL [facility] MICROSCOPIC Not Indicate [facility] ospital ID Date Data Source [id number] 10/28/2019 10:44:00 AM EDT [facility] Name Value Range Interpretation Code Description Data Chata rce(s) Supporting Document(s) HCG SERUM QUAL NEGATIVE NORMAL: NEGATIVE [facility] HCG SERUM QL REENTER NEGATIVE NORMAL: NEGATIVE [facility] { KIT LOT # [id number] ){ KIT EXP DATE 02.04.21 ){ PROCEDURAL CONTROL VALID ) ID Date Data Source [id number] 10/28/2019 09:35:00 AM EDT [facility] Name Value Range Interpretation Code Description Data Chata rce(s) Supporting Document(s) CBC NO DIFF [facility] COMPLETE BLOOD COUNT Leukocytes [#/volume] in Blood by Automated count 9.2 10^3/uL 4.2 - 1 1.0 [facility] Erythrocytes [#/volume] in Blood by Automated count 4.58 10^6/uL 4. 20 - 5.40 [facility] Hemoglobin [Mass/volume] in Blood 13.3 g/dL 12.0 - 16.0 [facility] Hematocrit [Volume Fraction] of Blood by Automated count 40.8 % 3 7.0 - 47.0 [facility] Erythrocyte mean corpuscular volume [Entitic volume] by Auto mated count 89.1 fL 81.0 - 101 [facility] Erythrocyte mean corpuscular hemoglobin [Entitic mass] by Automated count 29.0 pg 27.0 - 34.0 [facility] Erythrocyte mean corpuscular hemoglobin concentration [Mass/volume] by Automated count 32.6 g/dL 31.0 - 36.0 [facility] Erythrocyte distribution width [Ratio] by Automated count 12.3 % 11.5 - 14.5 [facility] Platelets [#/volume] in Blood by Automated count 260 10^3/uL 150 - 45 0 [facility] Platelet mean volume [Entitic volume] in Blood by Automated count 9.6 fL 7.4 - 10.4 [facility] ID Date Data Source [id number] 09/13/2019 04:11:00 PM EST [facility] Patient: BOSSMAN JACKSON Observatio n Report - [facility].VisitID: [id number] [place] [address] [phone], FRegistration Date/Time: 09/13/2019 14:16 Weight:102.5 kg (S). [...] Derived from formula 2.14 m2 2.14 m2 [facility] ([facility]) Body mass index (BMI) [Ratio] 39.9 kg/m2 39.9 k g/m2 [facility] ([facility]) Body height 65 [in_i] 65 [in_i] [facility] ([facility]) 5'5" Body weight 108.864 kg 108.864 kg [facility] ([facility]) Body weight 240.00 [lb_av] 240.00 [lb_av] MEDEN T ([facility]) Oxygen saturation in Arterial blood by Pulse oximetry 97 % 97 % [facility] ([facility]) Respiratory rate 16 /min 16 /min [facility] ( [facility]) Body temperature 96.6 [degF] 96.6 [degF] [facility] ([facility]) Heart rate 91 /min 91 /min [facility] ([facility]) Diastolic blood pressure 110 mm[Hg] 110 mm[Hg] [facility] ([facility]) Systolic blood pressure 142 mm[Hg] 142 mm[facility]Hg] [facility] Body surface area 2.14 m2 2.14 m2 [facility] ([facility]) Body surface area Derived from formula 2.10 m2 2.10 m2 [facility] ([facility]) Body mass index (BMI) [Ratio] 38.1 kg/m2 38.1 k g/m2 [facility] ([facility]) Body height 65 [in_i] 65 [in_i] [facility] ([facility]) 5'5" Body weight 103.874 kg 103.874 kg [facility] ([facility]) Body weight 229.00 [lb_av] 229.00 [lb_av] MEDEN T ([facility]) Heart rate 83 /min 83 /min [facility] ([facility]) Diastolic blood pressure 82 mm[Hg] 82 mm[Hg] [facility] ([facility]) Systolic blood pressure 135 mm[Hg] 135 mm[facility]Hg] [facility] Body surface area 2.10 m2 2.10 m2 [facility] ([facility])
[2020-10-09 15:24] LABS: BASO % 0.1 % (0.0-1.0); HEMATOCRIT 45.6 % (36.0-47.0); HEMOGLOBIN 15.1 g/dl (12.0-15.5); LYMPH % 7.5 % (24.0-44.0); MEAN CORPUSCULAR HEMOGLOBIN 27.7 pg (27.0-33.0); MEAN CORPUSCULAR HGB CONC 33.1 g/dl (32.0-36.5); MEAN CORPUSCULAR VOLUME 83.7 fl (80.0-96.0); MONO # 0.2 10^3/uL (0.0-0.8); MONO % 1.6 % (2.0-8.0); NEUTROPHILS # 12.5 10^3/uL (1.5-8.5); NEUTROPHILS % 90.4 % (36.0-66.0); PLATELET COUNT, AUTOMATED 294 10^3/uL (150-450); RED BLOOD COUNT 5.45 10^6/uL (4.00-5.40); WHITE BLOOD COUNT 13.8 10^3/uL (4.0-10.0)
[2020-10-09 15:55] LABS: ACETAMINOPHEN LEVEL < 2.0 UG/ML (10.0-30.0); ALT/SGPT 30 U/L (12-78); BILIRUBIN,DIRECT 0.1 MG/DL (0.0-0.2); BILIRUBIN,TOTAL 0.4 MG/DL (0.2-1.0); BLOOD UREA NITROGEN 14 MG/DL (7-18); CALCIUM LEVEL 9.5 MG/DL (8.5-10.1); CARBON DIOXIDE LEVEL 25 MEQ/L (21-32); CHLORIDE LEVEL 104 MEQ/L (98-107); CPK CREATINE PHOSPHOKINASE 119 U/L (26-192); CREATININE FOR GFR 0.73 MG/DL (0.55-1.30); ETHYL ALCOHOL (ETHANOL) 0.003 % (0.000-0.010); GLOMERULAR FILTRATION RATE > 60.0 (>60); GLUCOSE, FASTING 119 MG/DL (70-100); POTASSIUM SERUM 4.1 MEQ/L (3.5-5.1); SALICYLATE LEVEL 3.7 MG/DL (5.0-30.0); SODIUM LEVEL 138 MEQ/L (136-145); THYROID STIMULATING HORMONE 0.929 uIU/ML (0.358-3.740); TOTAL PROTEIN 7.8 GM/DL (6.4-8.2)
[2020-10-09 15:55] LABS: AMPHETAMINES LEVEL URINE NEGATIVE (NEGATIVE); BARBITURATES URINE NEGATIVE (NEGATIVE); BENZODIAZEPINES URINE NEGATIVE (NEGATIVE); CANNABINOIDS URINE NEGATIVE (NEGATIVE); COCAINE METABOLITE URINE NEGATIVE (NEGATIVE); METHADONE URINE NEGATIVE (NEGATIVE); OPIATES URINE POSITIVE (NEGATIVE); PHENCYCLIDINE URINE NEGATIVE (NEGATIVE)
--- NOTE | 2020-10-09 16:13 | ECGEPIP ---
[facility] - ED Test Date: 2020-10-09 Pat Name: BOSSMAN JACKSON Department: Room: - Gender: Female Polisher And Buffer: hitesh : 1985 Requested By: AGUSTIN BAEZ Order Number: [id number] Reading MD: Agustin Barry Measurements Intervals Huger Rate: 98 P: 38 MS: 128 QRS: 27 QRSD: 80 T: 20 QT: 374 QTc: 477 Interpretive Statements Normal sinus rhythm Anterior lead misplacement (v1 and v3) Comparison tracing not on file Electronically Signed on 10-09-2020 16:13:44 EST by Agustin Barry
[2020-10-09] MEDS ORDERED: cloNIDine 0.2 MG TAB PO ONE (16:30)
[2020-10-09 17:22] VITALS: BP 171/102
[2020-10-09] MEDS ORDERED: CLONI1TA PO (18:47)
[2020-10-09] MEDS ORDERED: ONDA4TAB6 PO (18:47)
[2020-10-09 18:56] VITALS: BP 142/86
== END 2020-10-09 18:57 | disposition home or self-care (01) ==
LOC: M ED 12:58
DX: F11.23 Opioid dependence with withdrawal (principal)
CPT/HCPCS: 80048; 80076; 80143; 80307; 82077; 82550; 84443; 85025; 93005; 93041; 94760; 96374; 96375; 99285; J2060; J2405

== ENCOUNTER → 2023-11-13 | Outpatient (CLI) | payer OTHER ==
[~2023-11-13] MED LIST changes: +CLONI1TA PO; +ONDA4TAB6 PO
[2023-11-13 11:17] LABS: HEMATOCRIT 44.9 % (36.0-47.0); HEMOGLOBIN 15.1 g/dl (12.0-15.5); MEAN CORPUSCULAR HEMOGLOBIN 28.9 pg (27.0-33.0); MEAN CORPUSCULAR HGB CONC 33.6 g/dl (32.0-36.5); PLATELET COUNT, AUTOMATED 265 10^3/uL (150-450); RED BLOOD COUNT 5.22 10^6/uL (4.00-5.40); WHITE BLOOD COUNT 10.1 10^3/uL (4.0-10.0)
[2023-11-13 11:47] LABS: ALBUMIN 3.4 G/DL (3.2-5.2); ALKALINE PHOSPHATASE 183 U/L (46-116); ALT/SGPT 112 U/L (7.0-40); AST/SGOT 133 U/L (<34); BILIRUBIN,TOTAL 0.9 MG/DL (0.3-1.2); BLOOD UREA NITROGEN 7 MG/DL (9-23); CALCIUM LEVEL 9.1 MG/DL (8.5-10.1); CARBON DIOXIDE LEVEL 33 MMOL/L (20-31); CHLORIDE LEVEL 99 MMOL/L (98-107); CREATININE FOR GFR 0.52 MG/DL (0.55-1.30); GLOMERULAR FILTRATION RATE > 60.0 (>60); GLUCOSE, FASTING 395 MG/DL (60-100); HCG, SERUM QUALITATIVE NEGATIVE (NEGATIVE); POTASSIUM SERUM 4.2 MMOL/L (3.5-5.1); SODIUM LEVEL 134 MMOL/L (136-145); TOTAL PROTEIN 7.3 G/DL (5.7-8.2)
[2023-11-13 12:15] LABS: HIV 1&2 SCREEN NEGATIVE (NEGATIVE)
[2023-11-13 12:23] LABS: HEPATITIS C VIRUS ABY INDEX < 0.02 INDEX (<0.8)
[2023-11-13 13:17] LABS: GC DNA AMPLIFICATION NEGATIVE (NEGATIVE)
== END ==
LOC: M LAB 10:23
PROVIDERS: ATTEND Family Medicine
DX: F11.20 Opioid dependence, uncomplicated (principal)

== ENCOUNTER → 2024-08-12 | Outpatient (REF) | payer OTHER ==
[~2024-08-12] MED LIST changes: +ONDA-282 PO; -ONDA4TAB6 PO
[2024-08-12 13:03] LABS: CREATININE, URINE 45.6 MG/DL
[2024-08-12 13:04] LABS: MALB URINE SIEMENS < 3.0 MG/L
[2024-08-12 18:21] LABS: ALBUMIN 3.1 G/DL (3.2-5.2); ALKALINE PHOSPHATASE 209 U/L (35-104); ALT/SGPT 96 U/L (7.0-40); AST/SGOT 75 U/L (<34); BILIRUBIN,TOTAL 0.5 MG/DL (0.3-1.2); BLOOD UREA NITROGEN 12 MG/DL (9-23); CALCIUM LEVEL 9.6 MG/DL (8.5-10.1); CARBON DIOXIDE LEVEL 31 MMOL/L (20-31); CHLORIDE LEVEL 99 MMOL/L (98-107); CHOLESTEROL LEVEL 200 MG/DL (<200); CHOLESTEROL RISK RATIO 5.78 (<5); CREATININE FOR GFR 0.53 MG/DL (0.55-1.30); GLOMERULAR FILTRATION RATE > 60.0 (>60); GLUCOSE, FASTING 413 MG/DL (60-100); HDL CHOLESTEROL 34.6 MG/DL (>40); LDL CHOLESTEROL 127.2 MG/DL (<100); NON-HDL-C 165.4 MG/DL; POTASSIUM SERUM 4.6 MMOL/L (3.5-5.1); SODIUM LEVEL 137 MMOL/L (136-145); THYROID STIMULATING HORMONE 1.843 uIU/ML (0.55-4.78); TOTAL 25(OH) VITAMIN D 13.2 NG/ML (20.0-100.0); TOTAL PROTEIN 7.2 G/DL (5.7-8.2); TRIGLYCERIDES LEVEL 191 MG/DL (<150)
== END ==
LOC: M LAB REF 12:09
PROVIDERS: ATTEND Physician Assistant
DX: E11.9 Type 2 diabetes mellitus without complications (principal); E66.9 Obesity, unspecified; E55.9 Vitamin D deficiency, unspecified

== ENCOUNTER → 2024-08-17 | Outpatient (CLI) | payer OTHER | LOC: M WUC 08:48 | PROVIDERS: ATTEND Physician Assistant | DX: M72.2 Plantar fascial fibromatosis (principal) ==

== ENCOUNTER → 2024-08-24 | Outpatient (CLI) | payer OTHER ==
[~2024-08-24] MED LIST changes: +ISOVUE-370 76% 100ML VIAL As Ordered ONE
== END ==
LOC: M RAD 09:01
PROVIDERS: ATTEND Physician Assistant
DX: N92.6 Irregular menstruation, unspecified (principal)
CPT/HCPCS: 74177; Q9967

== ENCOUNTER → 2024-09-08 | Outpatient (REF) | payer OTHER ==
[~2024-09-08] MED LIST changes: -ISOVUE-370 76% 100ML VIAL As Ordered ONE
[2024-09-08 16:42] LABS: HEPATITIS B SURFACE ANTIGEN NEGATIVE (NEGATIVE)
[2024-09-08 17:02] LABS: HEPATITIS C VIRUS ABY INDEX 0.02 INDEX (<0.8)
[2024-09-08 17:03] LABS: HEPATITIS B CORE ANTIBODY IGM NEGATIVE (NEGATIVE)
[2024-09-08 17:12] LABS: ALBUMIN 3.2 G/DL (3.2-5.2); ALKALINE PHOSPHATASE 271 U/L (35-104); ALT/SGPT 96 U/L (7.0-40); AST/SGOT 95 U/L (<34); BILIRUBIN,TOTAL 0.5 MG/DL (0.3-1.2); BLOOD UREA NITROGEN 8 MG/DL (9-23); CALCIUM LEVEL 9.1 MG/DL (8.5-10.1); CARBON DIOXIDE LEVEL 28 MMOL/L (20-31); CHLORIDE LEVEL 99 MMOL/L (98-107); CREATININE FOR GFR 0.44 MG/DL (0.55-1.30); FERRITIN 109.8 NG/ML (7.3-270.7); GLOMERULAR FILTRATION RATE > 60.0 (>60); GLUCOSE, FASTING 471 MG/DL (60-100); POTASSIUM SERUM 4.6 MMOL/L (3.5-5.1); SODIUM LEVEL 135 MMOL/L (136-145); TOTAL PROTEIN 7.5 G/DL (5.7-8.2)
== END ==
LOC: M LAB REF 13:12
PROVIDERS: ATTEND Physician Assistant
DX: R74.01 Elevation of levels of liver transaminase levels (principal)

== ENCOUNTER → 2024-09-21 | Outpatient (CLI) | payer OTHER | LOC: M RAD 08:56 | PROVIDERS: ATTEND Physician Assistant | DX: N92.6 Irregular menstruation, unspecified (principal) ==